=== PATIENT | female | born 1990 | race Caucasian/White ===

== ENCOUNTER 2018-09-16 13:16 | Observation (INO) | payer SELFPAY ==
[~2018-09-16] VITALS: Ht 162.6 cm; Wt 68.2 kg
--- NOTE | ~2018-09-16 | DS ---
PATIENT:DEVIN EMERSON :89 MEDICAL RECORD: [id number] DISCHARGE SUMMARY ADMISSION DATE: 09/16/18 DISCHARGE DATE: 09/17/18 DATE OF ADMISSION: 09/16/2018 DATE OF DISCHARGE: 09/17/2018 ADMISSION DIAGNOSES: Viral syndrome and urinary tract infection. DISCHARGE DIAGNOSES: Viral syndrome and urinary tract infection. HISTORY AND PHYSICAL: See the H&P in the chart. DISCHARGING PHYSICIAN: Dr. Cook SUMMARY OF HOSPITALIZATION: The patient was admitted to the hospital and received supportive therapy. The patient received intravenous fluids as well as antibiotics for UTI. While hospitalized, she did not spike another temperature. Initial temperature was in excess of 102 degrees. The patient has responded well to fluids and Tylenol. At this time, she has less myalgias. The patient has been given precautions and will continue on her Tamiflu. The patient has also been given standard third trimester precautions. Follow up in the clinic on Monday. TRANSINT:[id number] Voice Confirmation ID: [id number] DOCUMENT ID: [id number] YOANA COOK MD CC: [id number] DICTATION DATE: 09/17/18 1221 BRIM POUNCER: 09/17/18 2315 DIS IN 09/17/18 [facility] [address] [id number]
[2018-09-16 14:10] LABS: APPEARANCE CLEAR (CLEAR); BILIRUBIN NEGATIVE (NEGATIVE); COLOR YELLOW (YELLOW); GLUCOSE NEGATIVE (NEGATIVE); KETONE NEGATIVE (NEGATIVE); NITRITE NEGATIVE (NEGATIVE); PROTEIN NEGATIVE (NEGATIVE); SPECIFIC GRAVITY 1.015 (1.005-1.020); UROBILINOGEN NORMAL (NORMAL)
[2018-09-16 14:11] LABS: BACTERIA MODERATE /hpf (NONE SEEN); EPITHELIAL CELLS 0-5 /hpf (0-5); RED CELLS - URINE 0-5 /hpf (0-5); WHITE CELLS - URINE 0-5 /hpf (0-5)
[2018-09-16 14:40] LABS: BASOPHILS 0.1 % (0-2); EOSINOPHILS 0.2 % (0-7); HEMATOCRIT 40.4 % (36.0-48.0); HEMOGLOBIN 13.1 g/dL (12-16); IMMATURE GRANULOCYTES 0.4 % (0-5); LYMPHOCYTES 12.6 % (15-50); MCH 29.8 pg (26.0-34.0); MCHC 32.4 g/dL (31.0-37.0); MCV 91.8 fL (80.0-100.0); MEAN PLATELET VOLUME 10.7 fL (7.4-10.4); NEUTROPHILS 78.7 % (40-80); PLATELET COUNT 193 10x3/uL (130-400); RDW 13.8 % (11.5-14.5); WBC 9.2 10x3/uL (4.8-10.8)
[2018-09-16 15:15] LABS: ALBUMIN 2.9 g/dL (3.4-5.0); ALKALINE PHOSPHATASE 170 U/L (46-116); ALT (SGPT) 17 U/L (10-68); CALC OSMOLALITY 276 mosm/kg (275-300); CALCIUM 9.4 mg/dL (8.5-10.1); CARBON DIOXIDE 23.2 mmol/L (21.0-32.0); CHLORIDE - SERUM 105 mmol/L (98-107); CREATININE - SERUM 0.5 mg/dL (0.6-1.3); GLUCOSE 79 mg/dL (74-106); POTASSIUM - SERUM 3.9 mmol/L (3.5-5.1); PROTEIN - SERUM 6.1 g/dL (6.4-8.2); SODIUM 141 mmol/L (136-145); UREA NITROGEN 5 mg/dL (7-18); eGFR NON AFRICAN AMERICAN > 90 mL/min (90-120)
--- NOTE | 2018-09-16 15:20 | NUR ---
PT TRANSPORTED TO L&D PER DR. ALMAZAN
[2018-09-16] MEDS ORDERED: PRENAVITE1 TAB PO (19:35)
[2018-09-16 19:56] VITALS: BP 124/75; Ht 162.6 cm; Wt 68.2 kg
--- NOTE | 2018-09-16 23:39 | NUR ---
DR. ALMAZAN NOTIFIED OF C/O HEARTBURN AND PT REPORTING THAT SHE HAD BEEN TAKING TUMS AT HOME WITH NO RELIEF. ORDERS REC'D FOR 40 MG PO PRILOSEC DAILY. Tj MANSFIELD RN NOTIFIED OF NEW ORDERS REC'D.
--- NOTE | 2018-09-16 23:54 | NUR ---
PRILOSEC NOT STOCKED IN HOSPITAL. DR. ALMAZAN NOTIFIED AND NEW ORDERS REC'D FOR PROTONIX 40 MG PO DAILY. Tj MANSFIELD RN PRESENT AND AWARE OF NEW ORDERS REC'D.
== END 2018-09-17 15:00 | disposition home or self-care (01) ==
LOC: D.ER 13:16 → D.LDO 13:16 → D.ER 15:20 → EDSTATUS 15:39 → D.LD 16:49 → OBSVTIME 16:49 → D.LD 16:49
PROVIDERS: Family Medicine; ADMIT Obstetrics & Gynecology; ATTEND Obstetrics & Gynecology
DX: O26.893 Other specified pregnancy related conditions, third trimester (principal); O23.43 Unspecified infection of urinary tract in pregnancy, third trimester; Z3A.39 39 weeks gestation of pregnancy; J11.1 Influenza due to unidentified influenza virus with other respiratory manifestations

== ENCOUNTER 2018-09-25 19:07 | Inpatient (IN) | payer OTHER ==
[~2018-09-25] VITALS: Ht 162.6 cm; Wt 69.4 kg
[~2018-09-25 19:07] MED LIST: PRENAVITE1 TAB PO
[2018-09-25 19:35] VITALS: BP 121/82; Ht 162.6 cm; Wt 69.4 kg
[2018-09-25 20:30] LABS: HEMATOCRIT 36.4 % (36.0-48.0); HEMOGLOBIN 11.9 g/dL (12-16); MCH 29.4 pg (26.0-34.0); MCHC 32.7 g/dL (31.0-37.0); MCV 89.9 fL (80.0-100.0); MEAN PLATELET VOLUME 10.4 fL (7.4-10.4); RBC 4.05 10x6/uL (4.00-5.40); RDW 13.7 % (11.5-14.5); WBC 7.3 10x3/uL (4.8-10.8)
[2018-09-25 20:32] LABS: APPEARANCE CLEAR (CLEAR); COLOR YELLOW (YELLOW)
[2018-09-25 20:33] LABS: BILIRUBIN NEGATIVE (NEGATIVE); GLUCOSE NEGATIVE (NEGATIVE); KETONE NEGATIVE (NEGATIVE); NITRITE NEGATIVE (NEGATIVE); PROTEIN NEGATIVE (NEGATIVE); UROBILINOGEN NORMAL (NORMAL)
[2018-09-25 20:48] LABS: UDS - AMPHET NEGATIVE QUAL (NEGATIVE); UDS - BARB NEGATIVE QUAL (NEGATIVE); UDS - BENZO NEGATIVE QUAL (NEGATIVE); UDS - COCAINE NEGATIVE QUAL (NEGATIVE); UDS - OPIATE NEGATIVE QUAL (NEGATIVE); UDS - PCP NEGATIVE QUAL (NEGATIVE); UDS - THC NEGATIVE QUAL (NEGATIVE)
--- NOTE | 2018-09-26 17:15 | NUR ---
pt denies pain or discomfort at this time. family at bedside.
--- NOTE | 2018-09-26 18:00 | NUR ---
large cup of ice per request. denies any other needs at this time. fundus firm at u/1 light bleeding noted to danny pad. call light in reach.
[2018-09-26 21:00] VITALS: BP 121/78
--- NOTE | 2018-09-26 21:00 | NUR ---
RECEIVED TO 1219 AMBULATORY. GAIT STEADY. IV SALINE LOCK IN RT HAND. RATES PAIN A 0 OF 10 ON PAIN SCALE. ORIENTED TO ROOM AND CALL SYSTEM. PT. UP TO BATHROOM TO VOID.
--- NOTE | 2018-09-26 21:10 | NUR ---
PT. BACK FROM BATHROOM. FUNDUS U/U AND MIDLINE. INQUIRED IF PT. FELT SHE WAS EMPTYING BLADDER. STATES THAT SHE GOES OFTEN BUT VOIDS SMALL AMT. BLADDER APPEARS SLIGHTLY DISTENDED. RECOMMENDED PT. USE JOHNY BOTTLE TO SQUIRT ON PERINEAL AREA SHE VOIDS NEXT TIME UP. INSTRUCTED PT. TO CALL THIS NURSE AFTER NEXT VOID FOR ANOTHER FUNDAL CHECK. PT. STATES UNDERSTANDING TO ALL.
--- NOTE | 2018-09-26 21:43 | NUR ---
PT. CALLED THIS NURSE TO ROOM POST VOID. FUNDUS 1/U AND DISPLACED TO RT. TALKED TO PT. ABOUT NEED TO EMPTY BLADDER. PT. STATES "IT IS FEELS NUMB DOWN THERE" AND I FEEL THAT MY BLADDER IS FULL. PT. AGREEABLE TO IN AND OUT CATH.
--- NOTE | 2018-09-26 22:00 | NUR ---
IN AND OUT CATH. PER HOSPITAL POLICY WITH IMMED. RETURN OF 800CC CLEAR YELLOW URINE. PT. REPORTS THAT SHE FEELS MUCH RELIEF. LABIA WITH EDEMA NOTED, INFORMED PT. WOULD PLACE ICE CAP. TUCKS AND DERMOPLAST SPRAY USED FOR PT. ON PERINEAL AREA AND RECTAL AREA. ASSISTED WITH JOHNY PANTIES. KAROLINA FRANCO SCANT TO MOD..
--- NOTE | 2018-09-26 22:18 | NUR ---
TORADOL GIVEN ORDERED FOR C/O PAIN. ANSWERED PT'S QUESTIONS REGARDING . PT. RECEPTIVE TO ALL INFORMATION GIVEN. PT.'S MOTHER IN LAW ALSO IN ROOM WITH PT. AND ASKING QUESTIONS. ICE CAP APPLIED TO PERINEAL AREA. INFANT IN OPEN CRIB IN ROOM. ICE WATER PROVIDED.
--- NOTE | 2018-09-26 22:20 | NUR ---
BREAST CREAM GIVEN TO PT. AND USE EXPLAINED. PT. STATES UNDERSTANDING.
--- NOTE | 2018-09-26 22:59 | NUR ---
PT. RELATES THAT SHE IS PAIN FREE SINCE ICE CAP AND TORADOL. REMAINS AT BEDSIDE IN OPEN CRIB. SIDE RAILS UP X 2 AND CALL LIGHT WITHIN REACH.
--- NOTE | 2018-09-27 02:33 | NUR ---
AT PRESENT. STATES SHE VOIDED ABOUT 0200 BUT DID NOT CALL REQUESTED BECAUSE SHE WAS ABLE TO VOID MORE AND DID NOT FEEL DISTENDED BEFORE. INFORMED WHEN SHE IS THROUGH TO CALL THIS NURSE SO A FUNDAL CHECK CAN BE DONE. PT. STATED UNDERSTANDING.
--- NOTE | 2018-09-27 03:30 | NUR ---
INTO ROOM TO CHECK ON PT. PT. SITTING UP LOOKING AT THAT [id number] IS HOLDING. STATES THAT GAVE HIM SOME BOTTLE BUT THEY THINK HE HAS GAS. INQUIRED IF PT. NEEDED PAIN MED AND PT. STATED THE TYLENOL WOULD BE APPRECIATED. FUNDAL CHECK WITH UTERUS U/U AND BLADDER DISTENDED. PT.STATES SHE REALLY STRAINS TO GET ANY URINE OUT. STATES SHE THINKS IT MAY BE BECAUSE SHE IS AFRAID TO RELAX THINKING IT WILL BE PAINFUL. DISCUSSED PT. USING SITZ BATH AND LETTING HERSELF RELAX AND ATTEMPT TO VOID WHILE ON THE SITZ BATH. PT. AGREEABLE.
--- NOTE | 2018-09-27 03:35 | NUR ---
TYLENOL GIVEN ORDERED FOR PERINEAL DISCOMFORT. SITZ BATH PREPARED FOR PT. AND PT. INTO BATHROOM AND INSTRUCTED ON USE. SITZ BATH IN PROGRESS.
--- NOTE | 2018-09-27 05:12 | NUR ---
LYING ON LT SIDE. RESPIRATIONS UNLABORED. LIGHTS IN ROOM DIMMED.
[2018-09-27 05:51] LABS: BASOPHILS 0.1 % (0-2); EOSINOPHILS 0.4 % (0-7); HEMATOCRIT 33.9 % (36.0-48.0); HEMOGLOBIN 10.9 g/dL (12-16); IMMATURE GRANULOCYTES 0.4 % (0-5); LYMPHOCYTES 14.9 % (15-50); MCH 28.8 pg (26.0-34.0); MCHC 32.2 g/dL (31.0-37.0); MCV 89.4 fL (80.0-100.0); MEAN PLATELET VOLUME 10.5 fL (7.4-10.4); NEUTROPHILS 79.2 % (40-80); PLATELET COUNT 169 10x3/uL (130-400); RBC 3.79 10x6/uL (4.00-5.40)
[2018-09-27 06:06] LABS: WBC 10.5 10x3/uL (4.8-10.8)
--- NOTE | 2018-09-27 06:12 | NUR ---
ON BACK. RESPIRATIONS UNLABORED.
[2018-09-27 08:00] VITALS: BP 110/75
--- NOTE | 2018-09-27 08:00 | NUR ---
THIS RN TO ROOM FOR SHIFT ASSESSMENT. PT SITTING UP IN BED, AAOx3. PT RATES PAIN 2/10, STATES SHE HAD PAIN MEDS DURING NIGHT AND THEY ARE MANAGING PAIN WELL. VSS, SHIFT ASSESSMENT COMPLETE, SEE FLOWSHEET FOR DOC. PT DENIES CONCERNS WITH HEAVY LOCHIA, INSTRUCTED ON S/S TO REPORT AND ENCOURAGED TO EMPTY BLADDER REGULARLY TO DECREASE CRAMPING AND LOCHIA. UNDERSTANDING VERBALIZED. PT STATES SHE HAD SOME DIFFICULTY VOIDING DURING NIGHT BUT WAS ABLE TO VOID NORMALLY THIS MORNING. PT INSTRUCTED ON TIPS TO INITIATE STREAM OF URINE INCLUDING WARM WATER IN PERIBOTTLE WHEN TRYING TO VOID. UNDERSTANDING VERBALIZED. PT C/O TENDERNESS AT IV SITE TO LEFT HAND/WRIST. AM LABS REVIEWED AND NOTED TO BE STABLE. PIV REMOVED WITHOUT INCIDENT, PRESSURE HELD AND BANDAID APPLIED. PT REQUESTS PADS AND PANTIES, PROVIDED TO PT REQUESTED. PT DENIES FURTHER NEEDS AT THIS TIME. BREAKFAST TRAY SET UP AT PT'S BEDSIDE. SIG OTHER IN BEDSIDE CHAIR. SRUx2, CL IN REACH. WILL CONT TO MONITOR.
[2018-09-27 08:20] LABS: RAPID PLASMA REAGIN Non Reactive (Non Reactive)
--- NOTE | 2018-09-27 09:32 | NUR ---
PT SIG OTHER TO DESK STATING PT IS WANTING PAIN MED. THIS RN TO ROOM. PT RATES PAIN4 4-5/10 IN ABD, CRAMPING. PT ADMIN PRN TORADOL ORDERED, SEE EMAR FOR DOC. PT PROVIDED WITH FRESH ICE WATER. PT DENIES FURTHER NEEDS. SRUx2, CL IN REACH.
--- NOTE | 2018-09-27 10:00 | NUR ---
PT ADMIN COLACE ORDERED, SEE EMAR FOR DOC. PT DENIES NEEDS, SRUx2, CL IN REACH. SIG OTHER AT BEDSIDE.
--- NOTE | 2018-09-27 10:58 | NUR ---
THIS RN TO ROOM FOR PT CHECK. PT DENIES PAIN OR ANY NEEDS, LYING IN BED ON RIGHT SIDE, STATES SHE WANTS TO TRY TO NAP RIGHT NOW WHILE HER SIG OTHER GOES TO GET LUNCH. Clau, CL IN REACH. WILL CONT TO MONITOR.
--- NOTE | 2018-09-27 11:51 | NUR ---
DR GALVAN TO ROOM FOR ROUNDING. DR GALVAN GIVES ORDER FOR D/C TO HOME WHEN INFANT DISCHARGES. ORDER RECEIVED TO BLADDER SCAN FOLLOWING NEXT VOID TO ENSURE COMPLETE BLADDER EMPTYING. PT INSTRUCTED TO CALL BARBER INSTRUCTOR LIGHT AND NOTIFY RN AFTER NEXT VOID. UNDERSTANDING VERBALIZED. DR GALVAN DISCUSSING D/C INSTRUCTIONS WITH PT AND SIG OTHER. UNDERSTANDING VERBALIZED. WILL CONT TO MONITOR.
--- NOTE | 2018-09-27 12:19 | NUR ---
THIS RN TO ROOM FOR VS. PT SITTING UP IN BED AND VISITING WITH FAMILY MEMBER. PT INSTRUCTED TO CALL ON LIGHT WHEN FINISHED FOR VITALS TO BE TAKEN. UNDERSTANDING VERBALIZED.
[2018-09-27 12:40] VITALS: BP 100/76
--- NOTE | 2018-09-27 12:43 | NUR ---
PT CALLS OUT CLAM SORTER LIGHT STATING SHE HAS VOIDED AND IS FINISHED . THIS RN TO ROOM. VSS, SEE FLOWSHEET FOR DOC. UNABLE TO OBTAIN BLADDER SCANNER TO SCAN PT. BLADDER PALPATED AND NOTED TO BE NON-DISTENDED. FF, ML, U/U. PT C/O SOME CRAMPING AND STATES SHE WOULD LIKE TYLENOL. PT ADMIN PRN TYLENOL ORDERED, SEE EMAR FOR DOC. PT ALSO PROVIDED WITH CUP OF ICE FOR SODA IN ROOM PER REQUEST. PT DENIES FURTHER NEEDS, VISITING WITH FAMILY. Sonam2, CL IN REACH. WILL CONT TO MONITOR.
--- NOTE | 2018-09-27 12:44 | NUR ---
LE@ 10:00 Deisi Lawler 09[birth year] S: Patient states this is there first baby. There willing to accept all information. Baby has been doing great with . We following delivery and he has been eating since. Denies pain with nursing. O: Patient sitting up bed, FOB cuddling in room. Informed patient takes time, practice, and patience. Both mother and are learning how to so it's a learning experience together. It is normal for not to latch immediately but will touch the nipple multiply time then latch. Every infant is different . Explained breastmilk composition, positions, how to verify infant is latched correctly, the importance of practicing responsive feeding, and benefits of skin to skin. Explained normal feeding patterns and cues. Encouraged to latch for every feeding to help with establishing your milk supply. Please ask for help as needed with . Provided CLC work cell, please call as needed when discharged for help with . Observed infant feeding cues and offer to asset latch. Explained how to hold for feeding. was placed on the right in cradle position and latched immediately at 10:15. mouth 140 degrees, round checks, sucking in a rocking motion, and appears content at the breast. Observed sucking and removing milk. Asked if any pain with nursing? Encouraged to ask for help as needed and praised for . nursed from 10:15-10:30. A: Patient learning how to breastfeed with infant. P: Continue to promote during hospital visit. Linda Burris, CLC
--- NOTE | 2018-09-27 14:16 | NUR ---
THIS RN TO ROOM FOR PT CHECK. PT LYING IN BED ON RIGHT SIDE, EYES CLOSED, RESP EVEN AND UNLABORED. SIG OTHER IN BEDSIDE CHAIR. PT LEFT UNDISTURBED FOR REST. SRUx2, CL IN REACH.
--- NOTE | 2018-09-27 15:27 | NUR ---
DR GALVAN PHONES UNIT, GIVES VERBAL ORDER TO PROCEED WITH DISCHARGE. WILL D/C PT ORDERED.
--- NOTE | 2018-09-27 15:32 | NUR ---
THIS RN TO ROOM FOR PT CHECK AND VS. PT SITTING UP IN BED, INFANT AND VISITING WITH FAMILY. PT DENIES NEEDS. WILL RETURN FOR VS WHEN PT FINISHES BREASFTEEDING.
--- NOTE | 2018-09-27 16:30 | NUR ---
THIS RN TO ROOM FOR PT CHECK. PT OUT OF SHOWER, PUTTING MAKEUP ON AND GETTING READY FOR D/C TO HOME. DISCHARGE PLANNING DISCUSSED, WILL RETURN WHEN PT TO BED FOR VS AND D/C INSTRUCTIONS. PT DENIES NEEDS AT THIS TIME.
[2018-09-27 16:50] VITALS: BP 109/85
--- NOTE | 2018-09-27 16:55 | NUR ---
PT BACK TO BED. VSS, SEE FLOWSHEET FOR DOC. PT C/O PAIN WITH HEMORRHOIDS, RATED 5/10 AT THIS TIME. REQUESTING MEDS. WILL ADMIN ORDERED.
--- NOTE | 2018-09-27 17:33 | NUR ---
PT ADMIN PRN MEDS FOR HEMORRHOIDS, SEE EMAR FOR DOC. DISCHARGE TEACHING DONE, UNDERSTANDING VERBALIZED AND PT SIGNS CHART COPIES. PT SIG OTHER PACKING BELONGINGS AND BRINGING CARSEAT IN TO PREP FOR DISCHARGE. PT DENIES NEEDS AT THIS TIME. WILL CONT TO MONITOR.
--- NOTE | 2018-09-27 19:30 | NUR ---
PT READY TO LEAVE, INFORMED PT THAT IT WILL BE A FEW MINUTES, FOB WENT AHEAD AND WENT OUTSIDE TO PULL THE CAR AROUND AND TAKE SOME BELONGINGS OUT, PT RATES PAIN 0/10 AT THIS TIME
--- NOTE | 2018-09-27 19:55 | NUR ---
PT DISCHARGED VIA HOME WITH INFANT AND FOB, ALL BELONGINGS, DISCHARGE PAPERS, AND PRESCRIPTIONS WITH PT
--- NOTE | 2018-09-28 12:24 | OP ---
PATIENT NAME: DEVIN EMERSON MEDICAL RECORD: [id number] :89 LOCATION:[facility] ADMISSION DATE:09/25/18 SURGEON: LEO COOK MD DATE OF OPERATION: 09/26/2018 DELIVERY NOTE PREDELIVERY DIAGNOSIS: Mother at 39 weeks' gestation. POSTDELIVERY DIAGNOSIS: Mother delivered at 39 weeks. PROCEDURE: Induction of labor with vaginal delivery. ATTENDING: Leo Cook MD ANESTHETIC: Continuous lumbar/epidural. FINDINGS: Viable male , LOWELL presentation, Apgars were 9 and 9, weight 8 pounds 4 ounces. Nuchal cord times 1. Second-degree laceration, repaired with 3-0 chromic. Placenta spontaneous and intact. EBL: 350 cc. DISPOSITION: Mother and recovered in the room. TRANSINT:[id number] Voice Confirmation ID: [id number] DOCUMENT ID: [id number] LEO COOK MD at 1224 CC: [id number] DICTATION DATE: 09/26/18 1452 DRAWBENCH OPERATOR HELPER: 09/26/18 1837 DIS IN 09/27/18 [facility] [address] [id number]
== END 2018-09-27 19:55 | disposition home or self-care (01) | DRG 807 ==
LOC: D.LD 19:07 → D.WS 09-26 20:50
PROVIDERS: ADMIT Obstetrics & Gynecology; ATTEND Obstetrics & Gynecology
PROC: 3E033VJ Introduction of Other Hormone into Peripheral Vein, Percutaneous Approach (ICD-10-PCS; principal; 2018-09-26)
PROC: 10E0XZZ Delivery of Products of Conception, External Approach (ICD-10-PCS; 2018-09-26)
PROC: 0KQM0ZZ Repair Perineum Muscle, Open Approach (ICD-10-PCS; 2018-09-26)
DX: O70.9 Perineal laceration during delivery, unspecified (principal); Z37.0 Single live birth; Z3A.39 39 weeks gestation of pregnancy; O69.81X0 Labor and delivery complicated by cord around neck, without compression, not applicable or unspecified